=== PATIENT | female | born 1985 | race African-American/Black ===

== ENCOUNTER → 2021-10-17 15:14 | Outpatient (CLI) | payer BC, SELFPAY ==
--- NOTE | ~2021-10-17 | US_ITS ---
EXAMINATION: US OB limited DATE: 10/17/2021 15:37 INDICATION: Subchorionic hematoma during first trimester TECHNIQUE: Real-time ultrasound of the pelvis was performed. The interpreting radiologist was not pre sent for the study. COMPARISON: None. FINDINGS: The uterus measures 15.7 x 8.0 x 9.4 cm. There is an intrauterine gestational sac. A 1.3 x 1.4 x 2.3 cm hypoechoic area seen adjacent to the gestational sac. heart rate is 168 beats per minute (bpm). IMPRESSION: 1. Small subchorionic hematoma. Reviewed, dictated and finalized at location B.
== END ==
PROVIDERS: PCP Obstetrics & Gynecology Gynecology; Visit Provider Obstetrics & Gynecology Gynecology
DX: O36.8910 Maternal care for other specified fetal problems, first trimester, not applicable or unspecified (principal); Z3A.00 Weeks of gestation of pregnancy not specified
CPT/HCPCS: 76815

== ENCOUNTER → 2021-11-15 10:15 | Outpatient (CLI) | payer BC, SELFPAY ==
--- NOTE | ~2021-11-15 | US_ITS ---
US OB limited 11/15/2021 10:49 Indication: Follow-up subchorionic hematoma Procedure: Realtime limited obstetrical ultrasound Comparison: 10/17/2021 Findings: There is a single living intrauterine in vertex presentation. heart rate is 152 BPM. Placenta is anterior measuring 6 cm to the cervix. Amniotic fluid is subjectively normal. N o subchorionic hemorrhage identified on the current study. Impression: 1: Interval resolution of subchorionic hematoma. Reviewed, dictated and finalized at location A. Impression: 1: Interval resolution of subchorionic hematoma.
== END ==
PROVIDERS: PCP Family Medicine; Visit Provider Obstetrics & Gynecology Gynecology
DX: O36.8920 Maternal care for other specified fetal problems, second trimester, not applicable or unspecified (principal)
CPT/HCPCS: 76815